=== PATIENT | female | born 1950 | race American Indian/Alaskan Native ===

== ENCOUNTER 2020-04-11 07:12 | Emergency (ER) | payer MEDICARE ==
[2020-04-11 07:21] VITALS: BP 167/83
[2020-04-11] MEDS ORDERED: IPRATROPIUM/ALBUTEROL SULFATE 3 ML AMPUL.NEB IH ONE (07:32)
--- NOTE | 2020-04-11 07:36 | Emergency Department Report ---
HPI - General Chief Complaint: Upper Respiratory Infection Time Seen by Provider: 04/11/20 07:31 - HPI HPI: This is a 70-year-old -[place] female presents to the emergency department with a complaint of a 9-day history of a mixed dry and productive cough, shortness of breath, and intermittent chest tightness. The patient currently denies any chest tightness or pain and says that when she gets that she will use her albuterol inhaler with some improvement. The patient also has a history of acid reflux and says that that has been bothering her intermittently as well, despite using her Protonix. She denies any fever, lower extremity swelling, nausea, vomiting, back pain, diaphoresis. The patient went to see her PCP ("I have a doctor at [place]"), 2 days ago, but she says that there was no significant intervention. She has a past medical history of asthma, GERD, ovarian cyst, uterine fibroids. She is also been using Symbicort, Flonase and Robitussin. The patient says that she starts getting coughing fits which is what exacerbates her shortness of breath. No recent travel or sick contacts at home. No known exposure to anyone with Covid 19. She denies any tobacco or illicit drug use. ED Past Medical Hx - Past Medical History Previous Medical History?: Yes Hx GERD: Yes Hx Asthma: Yes Additional medical history: Ovarian cyst, Uterine fibroids - Surgical History Past Surgical History?: Yes Additional Surgical History: Exploratory lap - Social History Smoking Status: Never Smoker Substance Use Type: Prescribed - Medications Home Medications: Home Medications Medication Instructions Recorded Confirmed Last Taken Type Benzonatate [Tessalon Perles] 100 mg PO Q8HR PRN #20 capsule 04/11/20 Unknown Rx ED Review of Systems ROS: Stated complaint: CHEST PAIN/JANUSZ/COUGH Other details as noted in HPI Comment: All other systems reviewed and negative Constitutional: denies: chills, fever Eyes: denies: eye pain, vision change ENT: denies: ear pain, throat pain Respiratory: cough, shortness of breath Cardiovascular: chest pain (chest tightness). denies: edema Gastrointestinal: denies: abdominal pain, vomiting Genitourinary: denies: dysuria, discharge Musculoskeletal: denies: back pain, arthralgia Skin: denies: rash, lesions Neurological: denies: headache, weakness Physical Exam - Physical Exam Vital Signs: Vital Signs 04/11/20 07:16 Temperature 98.8 F Pulse Rate 108 H Respiratory 20 Rate Blood Pressure 167/83 O2 Sat by Pulse 99 Oximetry Physical Exam: GENERAL: The patient is well-developed well-nourished. HENT: Normocephalic. Atraumatic. Patient has moist mucous membranes. EYES: Extraocular motions are intact. NECK: Supple. Trachea is midline. CHEST/LUNGS: Clear to auscultation. No cough heard during examination. No tachypnea or accessory muscle use. There is no respiratory distress noted. HEART/CARDIOVASCULAR: Regular. There is no tachycardia. There is no murmur. ABDOMEN: Abdomen is soft, nontender. Patient has normal bowel sounds. SKIN: Skin is warm and dry. NEURO: The patient is awake, alert, and oriented. The patient is cooperative. Normal speech. MUSCULOSKELETAL: There is no tenderness or deformity. There is no limitation range of motion. ED Course Vital Signs 04/11/20 07:16 Temperature 98.8 F Pulse Rate 108 H Respiratory 20 Rate Blood Pressure 167/83 O2 Sat by Pulse 99 Oximetry ED Medical Decision Making - Lab Data Result diagrams: 04/11/20 07:39 04/11/20 07:39 - EKG Data -: EKG Interpreted by Me EKG shows normal: sinus rhythm, axis, intervals, QRS complexes (LVH), ST-T waves (Nonspecific ST-T waves) Rate: tachycardia (103 bpm) - EKG Data When compared to previous EKG there are: previous EKG unavailable Interpretation: other (Sinus rhythm at 103 bpm, normal axis, normal intervals, LVH, nonspecific ST-T waves. No ST elevation [place]) - Radiology Data Radiology results: image reviewed interpreted by me: Chest x-ray does not show any acute process. There are no pleural effusions, obvious pneumonia and there is no pneumothorax. No significant cardiomegaly. - Medical Decision Making This patient presents to the emergency department with a complaint of a 9-day history of some shortness of breath, coughing with coughing fits, and some intermittent chest tightness. At the time of my examination the patient denies any chest tightness, chest pain. There was no coughing heard during examination. She does not appear in any respiratory or acute distress. An EKG was done and interpreted by myself that did not show any signs of ST elevation [place] or any significant dysrhythmia. Chest x-ray did not show any pneumonia, pleural effusions, pneumothorax, focal consolidation, or any other acute process. The patient's labs have been unremarkable including CBC, metabolic panel and a negative troponin. She was given a Tessalon Perles for her cough and history and a DuoNeb breathing treatment. Upon reevaluation the patient says she is feeling greatly improved. Her vital signs have been reassuring throughout her ED course including being afebrile. Patient has good outpatient primary care follow-up and already has an albuterol inhaler and [id number] Robitussin. She will be given Tessalon Perles for a second antitussive. Despite the fact that the patient's intermittent chest tightness appears more respiratory in etiology, versus cardiac, her contact information has been sent over to the [facility] and [facility] [place]. Someone from their office should be contacting you shortly for close outpatient follow-up. Patient will return to the emergency department with any worsening of her symptoms or with any acute distress. Critical Care Time: No Critical care attestation.: If time is entered above; I have spent that time in minutes in the direct care of this critically ill patient, excluding procedure time. ED Disposition Clinical Impression: Bronchitis Upper respiratory infection Qualifiers: URI type: unspecified URI Qualified Code(s): J06.9 - Acute upper respiratory infection, unspecified Hypertension Qualifiers: Hypertension type: essential hypertension Qualified Code(s): I10 - Essential (primary) hypertension Disposition: DC-01 TO HOME OR SELFCARE Is pt being admited?: No Condition: Stable Instructions: Acute Bronchitis (ED), Hypertension (ED) Additional Instructions: Please follow-up with a primary care physician in the next few days. Return to the emergency department with any worsening of your symptoms, new or concerning symptoms not addressed during this emergency department visit, or with any acute distress. I feel that your chest tightness is most likely respiratory and not due to your heart. However, I have sent your contact information over to the [facility] [place] and someone from their office should be contacting you shortly for close outpatient follow-up. Take your medications as prescribed. Take your blood pressure medications. Try to stay away from foods that are high in salt and caffeinated products to help with your blood pressure. Keep a blood pressure log. You did not have a fever here today. Your chest x-ray did not show any signs of pneumonia. You do have signs/symptoms of a viral upper respiratory infection. Given this current pandemic, please try to stay away from anyone who is elderly, immunocompromised, or chronically ill/debilitated. I am unable to test you for Covid 19 at this time. You may want to seek outpatient Covid 19 testing. This can be done at some primary care physicians offices, some urgent cares, and there should be a listing of testing facilities through the [facility]. Prescriptions: Benzonatate [Tessalon Perles] 100 mg PO Q8HR PRN #20 capsule PRN Reason: Cough Referrals: [facility] [Other] - 2-3 Days CAPRI LE MD [Staff Physician] - 2-3 Days Time of Disposition: 09:07
[2020-04-11 08:02] LABS: Basophils # (Auto) 0.1 K/mm3 (0.0-0.1); Basophils % (Auto) 1.2 % (0.0-1.8); Eosinophils # (Auto) 0.8 K/mm3 (0.0-0.4); Hemoglobin 13.5 gm/dl (10.1-14.3); Lymphocytes # (Auto) 2.7 K/mm3 (1.2-5.4); Lymphocytes % (Auto) 37.5 % (13.4-35.0); Mean Corpuscular HGB Conc 33 % (30-34); Mean Corpuscular Volume 87 fl (79-97); Monocytes # (Auto) 0.7 K/mm3 (0.0-0.8); Monocytes % (Auto) 10.3 % (0.0-7.3); Platelet Count 327 K/mm3 (140-440); Red Blood Count 4.72 M/mm3 (3.65-5.03); Red Cell Distribution Width 14.6 % (13.2-15.2)
[2020-04-11] MEDS ORDERED: BENZONATATE 100 MG CAP PO ONE (08:03)
--- NOTE | 2020-04-11 08:06 | XRay Report ---
CHEST 2 VIEWS INDICATION / CLINICAL INFORMATION: Chest Pain. COMPARISON: None available. FINDINGS: SUPPORT DEVICES: None. HEART / MEDIASTINUM: No significant abnormality. LUNGS / PLEURA: No significant pulmonary or pleural abnormality. No pneumothorax. ADDITIONAL FINDINGS: No significant additional findings. IMPRESSION: No acute cardiopulmonary abnormality. Signer Name: Steve Schmidt MD Signed: 04/11/2020 8:01 AM Workstation Name: [id number]
[2020-04-11 08:52] LABS: Blood Urea Nitrogen 16 mg/dL (7-17); Calcium 9.7 mg/dL (8.4-10.2); Hemolysis Index 55
[2020-04-11 08:54] LABS: BUN/Creatinine Ratio 23
== END 2020-04-11 09:32 | disposition home or self-care (01) ==
LOC: ED 07:12
DX: J06.9 Acute upper respiratory infection, unspecified (principal); I10 Essential (primary) hypertension; J40 Bronchitis, not specified as acute or chronic; K21.9 Gastro-esophageal reflux disease without esophagitis; Z79.899 Other long term (current) drug therapy; Z98.890 Other specified postprocedural states
CPT/HCPCS: 36415; 71046; 80048; 84484; 85025; 93005; 94640